=== PATIENT | female | born 1985 | race Caucasian/White ===

== ENCOUNTER 2020-12-07 02:48 | Inpatient (IN) ==
[2020-12-07] MEDS ORDERED: Buffered Lidocaine 1% SYRIN 1 ml INTRADERM ONE (03:41)
[2020-12-07] MEDS ORDERED: Lactated Ringers 1000 ml BAG 1,000 ML IV ONE ×2 (03:41→09:10)
[2020-12-07 04:52] LABS: Urine Benzodiazepine Screen None Detected (None Detect); Urine Cannabinoids Screen None Detected (None Detect); Urine Opiates Screen None Detected (None Detect)
[2020-12-07 06:35] LABS: ABS Basophils 0.1 10^3/ul (0-0.2); ABS Eosinophils 0.1 10^3/ul (0-0.6); ABS Lymphocytes 2.3 10^3/ul (1.0-4.8); ABS Monocytes 0.9 10^3/ul (0-0.8); ABS Neutrophils 12.5 10^3/ul (1.5-7.7); Eosinophil % 0.4 %; Hematocrit 35 % (35-47); Hemoglobin 11.1 g/dL (12.0-16.0); Lymphocyte % 14.4 %; Mean Corpuscular HGB Conc 32 g/dL (31-36); Mean Corpuscular Hemoglobin 27 pg (27-31); Mean Corpuscular Volume 84 fL (80-97); Mean Platelet Volume 8.2 fL (7.4-10.4); Platelet Count 251 10^3/uL (150-450); Red Blood Count 4.14 10^6 /uL (3.70-4.87); Red Cell Distribution Width 13 % (10-15); White Blood Count 15.8 10^3/uL (3.5-10.8)
[2020-12-07] MEDS ORDERED: OBEPIDURAL 250 ML EPIDURAL ONE (07:48)
[2020-12-07] MEDS ORDERED: Bupivacaine 0.25% SDV PF 10 ML VIAL INJ ONE (07:54)
[2020-12-07] MEDS: Lactated Ringers 1000 ml BAG 1,000 ML IV SCH ×2 (07:58→09:08)
[2020-12-07] MEDS: EPHEDrine (Pressors) 50 MG/ML VIAL IV PUSH PRN ×2 (08:18→08:38)
[2020-12-07] MEDS ORDERED: Sodium Citrate/Citric Acid LIQ 15 ML UDC PO PRN (09:10)
[2020-12-07] MEDS ORDERED: Phenylephrine 40 mcg/mL 10mL (400mcg) SYRINGE IV PUSH PRN ×2 (09:10)
[2020-12-07] MEDS ORDERED: EPHEDrine (Pressors) 50 MG/ML VIAL IV PUSH PRN (09:10)
[2020-12-07] MEDS ORDERED: Lactated Ringers 1000 ml BAG 1,000 ML IV SCH ×2 (10:00→13:00)
[2020-12-07] MEDS ORDERED: OBEPIDURAL 250 ML EPIDURAL SCH (10:00)
[2020-12-07] MEDS ORDERED: Oxytocin in LR 20 UNITS/1,000 ML BAG IVPB ONE (12:08)
[2020-12-07] MEDS ORDERED: Glycerin ADULT 2.4 gm SUPP PR PRN (12:22)
[2020-12-07] MEDS ORDERED: Witch Hazel PAD JAR TOPICAL PRN (12:22)
[2020-12-07] MEDS ORDERED: Dibucaine 1% OINT 28.35 GM TUBE PR PRN (12:22)
[2020-12-07] MEDS ORDERED: Oxytocin in LR 20 UNITS/1,000 ML BAG IVPB SCH (13:00)
[2020-12-08 07:32] LABS: ABS Eosinophils 0.1 10^3/ul (0-0.6); ABS Neutrophils 9.6 10^3/ul (1.5-7.7); Eosinophil % 0.9 %; Hematocrit 32 % (35-47); Hemoglobin 10.3 g/dL (12.0-16.0); Lymphocyte % 15.8 %; Mean Corpuscular HGB Conc 32 g/dL (31-36); Mean Corpuscular Hemoglobin 27 pg (27-31); Mean Corpuscular Volume 83 fL (80-97); Mean Platelet Volume 7.9 fL (7.4-10.4); Platelet Count 218 10^3/uL (150-450); Red Blood Count 3.87 10^6 /uL (3.70-4.87); Red Cell Distribution Width 13 % (10-15); White Blood Count 12.9 10^3/uL (3.5-10.8)
[2020-12-08 11:36] VITALS: BP 91/49
== END 2020-12-08 14:30 | disposition home or self-care (01) | DRG 560 ==
LOC: MCHOBOUT 02:48 → MCHOB 03:42
PROVIDERS: ADMIT Midwife; ATTEND Midwife